=== PATIENT | female | born 1985 | race Caucasian/White ===

== ENCOUNTER 2019-07-13 11:34 | Emergency (ER) | payer OTHER ==
[~2019-07-13] VITALS: Ht 160 cm; Wt 72.6 kg
[2019-07-13] MEDS ORDERED: Veetids 500500 MG PO (12:34)
== END 2019-07-13 13:01 | disposition home or self-care (01) ==
LOC: ER 11:34
DX: K08.89 Other specified disorders of teeth and supporting structures (principal); F17.210 Nicotine dependence, cigarettes, uncomplicated
CPT/HCPCS: 99282